=== PATIENT | male | born 1995 | race Caucasian/White ===

== ENCOUNTER 2020-08-17 08:00 | Emergency (ER) | payer MEDICAID ==
[~2020-08-17] VITALS: Ht 185.4 cm; Wt 107.0 kg
--- NOTE | 2020-08-17 08:31 | NUR ---
PT REPORTS THAT HE HAS HAD FATIGUE AND MUSCLE SORENESS SINCE YESTERDAY AROUND 1300. DOG BITE WAS 4-5 DAYS AGO- DOG UNKNOWN. NO REPORTS OF BEING AROUND POSITIVE COVID. CURRENT TEMP 99.4
[2020-08-17 08:58] VITALS: BP 139/96
== END 2020-08-17 09:00 | disposition home or self-care (01) ==
LOC: ER 08:01
DX: S81.832A Puncture wound without foreign body, left lower leg, initial encounter (principal); R11.0 Nausea; R43.8 Other disturbances of smell and taste; W54.0XXA Bitten by dog, initial encounter; Y93.89 Activity, other specified; Y92.89 Other specified places as the place of occurrence of the external cause; Y99.8 Other external cause status
CPT/HCPCS: 99281